=== PATIENT | female | born 1995 | race Caucasian/White ===

== ENCOUNTER 2017-10-18 14:19 | Emergency (ER) | payer OTHER ==
[~2017-10-18] VITALS: Ht 170.2 cm; Wt 104.8 kg
--- NOTE | 2017-10-18 17:02 | ED INFLUENZA/URI COMPLAINT ---
History of Present Illness General Chief Complaint: General Adult Stated Complaint: COUGH SORE THROAT Source: patient Exam Limitations: no limitations Vital Signs & Intake/Output Vital Signs & Intake/Output Vital Signs Date Time Temp Pulse Resp B/P B/P Pulse O2 O2 Flow FiO2 Mean Ox Delivery Rate 10/18 1800 100 18 137/68 100 Room Air 10/18 1427 98.8 115 16 136/86 99 Room Air Allergies Coded Allergies: No Known Allergies (10/18/17) Reconcile Medications Benzonatate (Tessalon Perle) 100 MG CAPSULE 1 CAP PO TID PRN COUGH Fluticasone Propionate (Flonase Allergy Relief) 50 MCG/ACTUATION SPRAY.SUSP 2 SPRAY SANTANA DAILY PRN CONGESTION Ondansetron HCl (Zofran) 4 MG TABLET 1 TAB PO Q6-8P PRN nausea Triage Note: PT TO ED FOR "IV FLUIDS AND SOMETHING ELSE" PT STATING HER PCP (SHE DOESN'T KNOW HER PCP'S NAME" SENT HER TO ED FOR IV FLUIDS FOR "DEHYDRATION, SORE THROAT AND A HEADACHE". PT REPORTING FEELING UNWELL X 3 DAYS, WAS TESTED FOR FLU AND STREP AND BOTH WERE NEGATIVE. Triage Nurses Notes Reviewed? yes Onset: Gradual Duration: constant Timing: recent history Severity: moderate Severity Numbers: 5 : No Patient currently breastfeeds: No HPI: Patient is a 22-year-old female with an unremarkable past medical history of since emergency room with a four-day history of nonproductive cough chills fevers body aches or throat nasal congestion and head congestion Patient was evaluated today at primary care doctor's was given an antibiotic prescription which has not been started however patient was advised presents to emergency room with concerns of nausea and requested IV fluids, patient did vomit twice today. Denies any chance of denies any abdominal pain back pain dysuria hematuria chest pain Positive sick contacts at home negative smoking history Past History Travel History Traveled to [place] past 21 day No Medical History Any Pertinent Medical History? none Neurological: NONE EENT: NONE Cardiovascular: NONE Respiratory: NONE Gastrointestinal: NONE Hepatic: NONE Renal: NONE Musculoskeletal: NONE Psychiatric: NONE Endocrine: NONE Blood Disorders: NONE Cancer(s): NONE Surgical History Surgical History: non-contributory Psychosocial History What is your primary language Macedonian Tobacco Use: Never used ETOH Use: denies use Illicit Drug Use: denies illicit drug use Family History Hx Contributory? No Review of Systems Review of Systems Constitutional: Reports: see HPI, chills. EENTM: Reports: see HPI, nasal congestion. Respiratory: Reports: see HPI. Cardiovascular: Reports: see HPI. GI: Reports: see HPI, nausea. Genitourinary: Reports: no symptoms. Musculoskeletal: Reports: see HPI, joint pain. Skin: Reports: no symptoms. Neurological/Psychological: Reports: see HPI. Hematologic/Endocrine: Reports: no symptoms. Immunologic/Allergic: Reports: no symptoms. All Other Systems: Reviewed and Negative Physical Exam Physical Exam General Appearance: no apparent distress, alert, comfortable Head: atraumatic Eyes: Bilateral: normal appearance, PERRL. Ears, Nose, Throat: moist mucous membrane, hearing grossly normal, Tympanic normal, pharynx normal, nasal congestion Neck: normal inspection, no midline tenderness Respiratory: normal breath sounds, chest non-tender, no respiratory distress Cardiovascular: tachycardia Peripheral Pulses: 2+ radial (R) Gastrointestinal: normal bowel sounds, soft, non-tender Extremities: normal inspection, normal capillary refill, no edema Neurologic/Psych: no motor/sensory deficits, awake, alert Skin: intact, normal color, warm/dry Core Measures Sepsis Present: No Sepsis Focused Exam Completed? No Progress Differential Diagnosis: influenza, meningitis, neutropenia, otitis, pneumonia, pharyngitis, sinusitis Plan of Care: Current Medications Sig/Judd Start time Last Medication Dose Stop Time Status Admin Ketorolac 30 MG ONCE ONE 10/18 1715 UNVr Tromethamine 10/18 1716 (Toradol) Ondansetron HCl 4 MG ONCE ONE 10/18 1715 UNVr (Zofran) 10/18 1716 Sodium Chloride 1,000 ML BOLUS ONE 10/18 1715 UNVr (Normal Saline 0.9%) 10/18 1814 Patient prior to arrival receiveD negative influenza and strep test from primary care doctor Patient was reevaluated on multiple occasions and had improvement of presenting complaints patient was able tolerate by mouth upon discharge patient will be treated for most likely viral syndrome pharyngitis however she was advised to continue her previously prescribed antibiotics. On discharge patient looks well afebrile nontoxic appearing nontender abdomen unremarkable ENT exam clear lungs auscultation Initial ED EKG: none Departure Departure Disposition: HOME OR SELF CARE Condition: Stable Clinical Impression Primary Impression: Pharyngitis Referrals: Alla Gold MD (PCP/Family) Additional Instructions: As discussed BEGIN YOUR previously prescribed antibiotic begin the prescription Zofran for nausea, Flonase for congestion, Tessalon Perles for cough If no better Saturday follow up with your Primary care doctor, begin drinking plain water for hydration If symptoms worsen return to emergency room Begin [id number] ibuprofen for pain and inflammation and begin Tylenol for fevers Departure Forms: Customer Survey General Discharge Information Prescriptions: Current Visit Scripts Ondansetron HCl (Zofran) 1 TAB PO Q6-8P PRN nausea #5 TAB Fluticasone Propionate (Flonase Allergy Relief) 2 SPRAY SANTANA DAILY PRN CONGESTION #1 BOT Benzonatate (Tessalon Perle) 1 CAP PO TID PRN COUGH #15 CAP
[2017-10-18 18:00] VITALS: BP 137/68
[2017-10-18] MEDS ORDERED: ZOFRAN4 M2 PO (18:57)
[2017-10-18] MEDS ORDERED: FLONASE ALLERG9.9 ML NAS (18:57)
[2017-10-18] MEDS ORDERED: TESSALON PERLE100 M1 PO (18:57)
== END 2017-10-18 19:06 ==
LOC: ERH 14:19
DX: J02.9 Acute pharyngitis, unspecified (principal)
CPT/HCPCS: 96374; 96375; J1885; J2405